=== PATIENT | male | born 2000 | race Caucasian/White ===

== ENCOUNTER 2021-10-11 17:33 | Emergency (ER) | payer BC ==
[~2021-10-11] VITALS: Ht 182.9 cm; Wt 70.3 kg
[2021-10-11 17:47] VITALS: BP 122/72
--- NOTE | 2021-10-11 18:03 | NUR ---
20 yo m biba from home w c/o seizure at approx 5pm. Pt states this is the second seizure he has had today. Per [facility] pt seized for 1 min and loc for 1 min. Pt states he has a MILLER, pain 8/10. Pt was at [facility] this morning for the same reason and was discharged. Pt states he belives it is his medications that are causing him to seiz. 18G to L fa by [facility]: depressio, anxiety meds: wellbutrin, trazodone knda
--- NOTE | 2021-10-11 18:37 | NUR ---
DR. CRAWFORD EVALUATING PATIENT AT BEDSIDE.
[2021-10-11] MEDS ORDERED: LORazepam 1 MG TAB PO ONE (18:40)
[2021-10-11] MEDS ORDERED: NACL 0.9% 1,000 ML IV ONE (18:40)
[2021-10-11] MEDS ORDERED: chlordiazePOXIDE 25 MG CAP PO ONE (19:50)
[2021-10-11] MEDS ORDERED: LIB25 PO (19:53)
[2021-10-11 21:00] VITALS: BP 136/88
--- NOTE | 2021-10-11 21:00 | NUR ---
Patient discharged with v/s stable. Written and verbal after care instructions given. Patient alert, oriented and verbalized understanding of instructions. Ambulatory with steady gait. All questions addressed prior to discharge. ID band removed. Patient advised to follow up with PMD. Rx of Librium given. Opportunity to ask questions provided and answered.
--- NOTE | 2021-10-11 21:01 | NUR ---
The patient's care was reviewed and supervised by Jinny Mccray RN.
== END 2021-10-11 21:00 | disposition home or self-care (01) ==
LOC: MED 17:33
DX: F10.239 Alcohol dependence with withdrawal, unspecified (principal); Y90.9 Presence of alcohol in blood, level not specified; F17.200 Nicotine dependence, unspecified, uncomplicated; F12.90 Cannabis use, unspecified, uncomplicated
CPT/HCPCS: 93005; 96360; 99283; J7030